=== PATIENT | female | born 1975 | race Caucasian/White ===

== ENCOUNTER 2018-03-16 09:43 | Emergency (ER) | payer BC ==
--- NOTE | 2018-03-16 10:11 | ER Document Report ---
ED Medical Screen (RME) - General Chief Complaint: Abdominal Pain Stated Complaint: ABDOMINAL PAIN Time Seen by Provider: 03/16/18 10:07 TRAVEL OUTSIDE OF THE [place] IN LAST 30 DAYS: No - HPI Notes: 03/16/18 10:10 Patient with history of diverticulitis left lower quadrant pain ongoing since last night with a fever - Related Data Allergies/Adverse Reactions: No Known Allergies Allergy (Unverified 03/16/18 09:44) Past Medical History - Past Medical History Cardiac Medical History: Reports: Hx Hypertension Renal/ Medical History: Denies: Hx Peritoneal Dialysis Review of Systems - Review of Systems Gastrointestinal: Abdominal pain Physical Exam - Vital signs Vitals: Temp Pulse Resp BP Pulse Ox 99.4 F 109 H 16 153/103 H 100 03/16/18 09:46 03/16/18 09:46 03/16/18 09:46 03/16/18 09:46 03/16/18 09:46 - Respiratory Respiratory status: No respiratory distress Chest status: Nontender Breath sounds: Normal Chest palpation: Normal - Cardiovascular Rhythm: Regular Heart sounds: Normal auscultation Course - Vital Signs Vital signs: Temp Pulse Resp BP Pulse Ox 99.4 F 109 H 16 153/103 H 100 03/16/18 09:46 03/16/18 09:46 03/16/18 09:46 03/16/18 09:46 03/16/18 09:46
[2018-03-16 11:08] LABS: ABSOLUTE LYMPHOCYTES (AUTO) 0.7 10^3/uL (0.5-4.7); ABSOLUTE MONOCYTES (AUTO) 0.7 10^3/uL (0.1-1.4); ABSOLUTE NEUT (AUTO) 8.7 10^3/uL (1.7-8.2); BASOPHILS % (AUTO) 0.3 % (0-2); EOSINOPHILS % (AUTO) 0.2 % (0-6); HEMATOCRIT 45.5 % (36.0-47.0); HEMOGLOBIN 15.4 g/dL (12.0-15.5); LYMPHOCYTES % (AUTO) 6.8 % (13-45); MEAN CORPUSCULAR HEMOGLOBIN 28.3 pg (27.0-33.4); MEAN CORPUSCULAR HGB CONC 33.9 g/dL (32.0-36.0); MEAN CORPUSCULAR VOLUME 83 fl (80-97); MONOCYTES % (AUTO) 6.7 % (3-13); PLATELET COUNT 328 10^3/uL (150-450); RED BLOOD COUNT 5.45 10^6/uL (3.72-5.28); RED CELL DISTRIBUTION WIDTH 13.5 % (11.5-14.0); TOTAL CELLS COUNTED % (AUTO) 100 %; WHITE BLOOD COUNT 10.1 10^3/uL (4.0-10.5)
[2018-03-16 11:14] LABS: APPEARANCE,URINE CLEAR; BILIRUBIN,URINE NEGATIVE (NEGATIVE); COLOR,URINE STRAW; GLUCOSE, URINE NEGATIVE (NEGATIVE); KETONES,URINE NEGATIVE (NEGATIVE); LEUKOCYTE ESTERASE,URINE NEGATIVE (NEGATIVE); NITRITE,URINE NEGATIVE (NEGATIVE); PROTEIN,URINE NEGATIVE (NEGATIVE); URINE SPECIFIC GRAVITY 1.013; UROBILINOGEN,URINE NEGATIVE mg/dL (<2.0)
--- NOTE | 2018-03-16 11:15 | ER Document Report ---
ED General <DOT LESLIE - Last Filed: 03/16/18 15:24> - General Mode of Arrival: Ambulatory Information source: Patient TRAVEL OUTSIDE OF THE [place] IN LAST 30 DAYS: No <KUNAL SAVAGE - Last Filed: 03/16/18 16:31> - General Chief Complaint: Abdominal Pain Stated Complaint: ABDOMINAL PAIN Time Seen by Provider: 03/16/18 10:07 Notes: Patient is a 42 year old female with HTN and a history of diverticulitis presents to the emergency department complaining of abdominal pain and vomiting onset yesterday. Patient states when she bent over yesterday morning she immediately vomited. She states she had no pain at that time although she had a burning sensation afterwards. She states last night she began to develop a small amount of abdominal pain which she described as uncomfortable. Around 0600 this morning, patient states she developed severe abdominal pain which has progressively worsened and she noticed she had a temperature of 101. Patient states her symptoms feel similar to her last episode of diverticulitis further stating she has had 3-4 episodes of diverticulitis. According to paperwork patient brought with her, patient had a CT scan in on which showed extensive inflammation in the proximal sigmoid with copious lymphnodes. Physician at that time recommended a colonoscopy but patient states she has not had one done since before the CT scan. Patient states she is currently prescribed Losartan, Amlodipine and Levothyroxine. Patient reports recently moving to [place] from [place] approximately 3 months ago and has yet to establish primary care further stating she is waiting for her insurance to be established. 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 (KUNAL SAVAGE) - Related Data Allergies/Adverse Reactions: No Known Allergies Allergy (Unverified 03/16/18 09:44) Past Medical History - General Information source: Patient - Social History Smoking Status: Never Smoker Cigarette use (# per day): No Chew tobacco use (# tins/day): No Frequency of alcohol use: Occasional Family History: Reviewed & Not Pertinent Patient has suicidal ideation: No Patient has homicidal ideation: No - Past Medical History Cardiac Medical History: Reports: Hx Hypertension Endocrine Medical History: Reports: Hx Hypothyroidism GI Medical History: Reports: Hx Diverticulitis, Hx Colonoscopy <KUNAL SAVAGE - Last Filed: 03/16/18 16:31> Review of Systems - Review of Systems Constitutional: See HPI, Fever EENT: No symptoms reported Cardiovascular: No symptoms reported Respiratory: No symptoms reported Gastrointestinal: See HPI, Abdominal pain, Vomiting Genitourinary: No symptoms reported Female Genitourinary: No symptoms reported Musculoskeletal: No symptoms reported Skin: No symptoms reported Hematologic/Lymphatic: No symptoms reported Neurological/Psychological: No symptoms reported -: Yes All other systems reviewed and negative <KUNAL SAVAGE - Last Filed: 03/16/18 16:31> Physical Exam <DOT LESLIE - Last Filed: 03/16/18 15:24> <KUNAL SAVAGE - Last Filed: 03/16/18 16:31> - Vital signs Vitals: Temp Pulse Resp BP Pulse Ox 99.4 F 109 H 16 153/103 H 100 03/16/18 09:46 03/16/18 09:46 03/16/18 09:46 03/16/18 09:46 03/16/18 09:46 - Notes Notes: GENERAL: Alert, interacts well. No acute distress. HEAD: Normocephalic, atraumatic. EYES: Pupils equal, round, and reactive to light. Extraocular movements intact. ENT: Oral mucosa moist, tongue midline. NECK: Full range of motion. Supple. Trachea midline. LUNGS: Clear to auscultation bilaterally, no wheezes, rales, or rhonchi. No respiratory distress. Chronic dry cough. HEART: Tachycardic. No murmurs, gallops, or rubs. ABDOMEN: Soft, LLQ and left pelvic region tender to palpation. Non-distended. Bowel sounds present in all 4 quadrants. EXTREMITIES: Moves all 4 extremities spontaneously. No edema, radial and dorsalis pedis pulses 2/4 bilaterally. No cyanosis. NEUROLOGICAL: Alert and oriented x3. Normal speech. PSYCH: Normal affect, normal mood. SKIN: Warm, dry, normal turgor. No rashes or lesions noted. (KUNAL SAVAGE) Course - Laboratory Result Diagrams: 03/16/18 10:38 03/16/18 10:38 - Diagnostic Test Radiology reviewed: Reports reviewed - Double contrast a CT scan shows a 15 cm long segment of abnormal distal descending/proximal sigmoid colon with luminal narrowing, wall thickening, and surrounding inflammatory change which is most likely diverticulitis. There are regional lymph nodes which are enlarged in the left lower quadrant mesentery. <DOT LESLIE - Last Filed: 03/16/18 15:24> - Laboratory Result Diagrams: 03/16/18 10:38 03/16/18 10:38 <KUNAL SAVAGE - Last Filed: 03/16/18 16:31> - Re-evaluation Re-evalutation: 03/16/18 15:09 The copies of the medical records and CT scan that was done in [place] were returned to the patient. She was also given a copy of the CT scan report for today. The findings were reviewed along with the recommendation for colonoscopy to evaluate for colon malignancy. She was advised to call [facility] this week to schedule a colonoscopy for after the acute illness resolves. She was also advised to be sure she does not miss her blood pressure medication doses, as her blood pressure was a little elevated today. (DOT LESLIE) - Vital Signs Vital signs: Temp Pulse Resp BP Pulse Ox 99.7 F 96 20 145/88 H 100 03/16/18 15:23 03/16/18 15:23 03/16/18 15:23 03/16/18 15:23 03/16/18 15:23 - Laboratory Laboratory results interpreted by me: 03/16/18 03/16/18 10:38 10:38 RBC 5.45 H Seg Neutrophils % 86.0 H Lymphocytes % 6.8 L Absolute Neutrophils 8.7 H AST 75 H ALT 113 H Alkaline Phosphatase 258 H Discharge <DOT LESLIE - Last Filed: 03/16/18 15:24> <KUNAL SAVAGE - Last Filed: 03/16/18 16:31> - Discharge Clinical Impression: Diverticulitis High blood pressure Qualifiers: Hypertension type: essential hypertension Qualified Code(s): I10 - Essential ( primary) hypertension Condition: Stable Disposition: HOME, SELF-CARE Additional Instructions: Diverticulitis: You have been diagnosed as having diverticulitis. This is an inflammation of a small pouch attached to the colon, called a diverticulum. Many of these small pouches can form on the colon as you get older. They are often caused by constipation. When inflamed or infected, symptoms arise -- usually abdominal pain, constipation or diarrhea, fever, and blood in the stool. Severe diverticulitis may require hospitalization. More mild cases are usually treated with antibiotics and clear liquid diet. As you improve, a diet low in residue (one which forms little stool) is prescribed. When you are better, you should eat a high-fiber diet. Stool softeners ( like Metamucil) are usually recommended. Call the doctor or go to the hospital if there is increasing pain, vomiting , high fever, large amounts of blood passed, or if bowel movements cease. Take the medications as prescribed. Stay on clear diet today and tomorrow. Take Tylenol and ibuprofen for pain as needed. Follow-up with [facility] this week to schedule a colonoscopy for after your current illness resolves. Follow-up with a local primary care provider for management of your medical problems. RETURN TO THE EMERGENCY ROOM IF ANY NEW OR WORSENING SYMPTOMS. Prescriptions: Metronidazole [Flagyl 500 mg Tablet] 500 mg PO QID #28 tablet Sulfamethoxazole/Trimethoprim [Septra-Ds 800-160 mg Tablet] 1 tab PO BID #14 tablet Referrals: [facility] [Provider Group] - Follow up in 1 week Shelley Attestation: 03/16/18 11:51 I personally performed the services described in the documentation, reviewed and edited the documentation which was dictated to the scribe in my presence, and it accurately records my words and actions. (DOT LESLIE) Chrisibe Documentation - Scribe Written by Shelley:: Shelley Quintero, 03/16/2018 11:18 acting as scribe for :: Natalie <KUNAL SAVAGE - Last Filed: 03/16/18 16:31>
[2018-03-16 11:25] LABS: ALANINE AMINOTRANSFERASE 113 U/L (9-52); ALBUMIN 4.6 g/dL (3.5-5.0); ALKALINE PHOSPHATASE 258 U/L (38-126); ANION GAP 13 (5-19); ASPARTATE AMINO TRANSFERASE 75 U/L (14-36); BILIRUBIN,DIRECT 0.3 mg/dL (0.0-0.4); BILIRUBIN,TOTAL 0.6 mg/dL (0.2-1.3); BLOOD UREA NITROGEN 14 mg/dL (7-20); CARBON DIOXIDE 27 mmol/L (22-30); CHLORIDE 101 mmol/L (98-107); GLUCOSE 90 mg/dL (75-110); LIPASE 50.6 U/L (23-300); POTASSIUM 4.8 mmol/L (3.6-5.0); SODIUM 141.2 mmol/L (137-145); TOTAL PROTEIN 8.1 g/dL (6.3-8.2)
--- NOTE | 2018-03-16 14:35 | RADIOLOGY REPORT (SQ) ---
EXAM DESCRIPTION: CT ABD/PELVIS WITH IV ORAL COMPLETED DATE/TIME: 03/16/2018 2:06 pm REASON FOR STUDY: LLQ pain, PMH sigmoid diverticulitis w/ adenopathy COMPARISON: Outside CT abdomen pelvis 08/19/2015 TECHNIQUE: CT scan of the abdomen and pelvis performed using helical scanning technique with dynamic intravenous contrast injection. Patient drank oral contrast. Images reviewed with lung, soft tissue , and bone windows. Reconstructed coronal and sagittal MPR images reviewed. Delayed images for evalua tion of the urinary system also acquired. All images stored on PACS. All CT scanners at this facility use dose modulation, iterative reconstruction, and/or weight based d osing when appropriate to reduce radiation dose to as low as reasonably achievable (ALARA). [facility]: Dose Right [facility]: CareDose [facility]: Dose Right [facility]: Teradose 4D [facility]: ALENTY CONTRAST TYPE AND DOSE: 50 mL of IV Omnipaque 350- low osmolar. RENAL FUNCTION: GFR > 60. RADIATION DOSE: CT Rad equipment meets quality standard of care and radiation dose reduction techniq ues were employed. CTDIvol: 4.8 - 5.2 mGy. DLP: 478 mGy-cm.. LIMITATIONS: None. FINDINGS: On coronal images 30-42, and axial images 40-57, a 15 cm long segment of colon wall thicke los, luminal narrowing, and surrounding inflammatory changes present from acute diverticulitis. Pro bable reactive adenopathy in the left lower quadrant with multiple 1 to 2 cm left lower quadrant mese nteric lymph nodes. There is adjacent pericolic gutter fluid, and free fluid in the left pelvic cul- de-sac. No well-circumscribed rim enhancing abscess. Although these findings likely represent acute diverticulitis, underlying colon malignancy could still be present. Overall, the extent of colon involvement is similar compared to 08/09/2015 Remainder of the gastrointestinal tract is opacified with oral contrast, without evidence of bowel ob struction. LOWER CHEST: No significant findings. No nodules or infiltrates. LIVER: Normal size. No masses. No dilated ducts. SPLEEN: Normal size. No focal lesions. PANCREAS: No masses. No significant calcifications. No adjacent inflammation or peripancreatic fluid collections. Pancreatic duct not dilated. GALLBLADDER: No identified stones by CT criteria. No inflammatory changes to suggest cholecystitis. ADRENAL GLANDS: No significant masses or asymmetry. RIGHT KIDNEY AND URETER: No solid masses. No significant calcifications. No hydronephrosis or hyd roureter. LEFT KIDNEY AND URETER: No solid masses. No significant calcifications. No hydronephrosis or hydr oureter. AORTA AND VESSELS: No aneurysm. No dissection. Renal arteries, SMA, celiac without stenosis. RETROPERITONEUM: No retroperitoneal adenopathy, hemorrhage or masses. BOWEL AND PERITONEAL CAVITY: As above APPENDIX: Normal. PELVIS: No mass. No free fluid. Normal bladder. ABDOMINAL WALL: No masses. No hernias. BONES: No significant or acute findings. OTHER: No other significant finding. IMPRESSION: 15 cm long segment of abnormal distal descending/ proximal sigmoid colon with luminal na rrowing, wall thickening and surrounding inflammatory change likely diverticulitis. There are region al lymph nodes which are enlarged in the left lower quadrant mesentery. When the patient's acute con dition resolves, workup for colon malignancy with endoscopy is recommended. TECHNICAL DOCUMENTATION: JOB ID: [id number] Quality ID # [id number]: Final reports with documentation of one or more dose reduction techniques (e.g., Au tomated exposure control, adjustment of the mA and/or kV according to patient size, use of iterative reconstruction technique) 2010 [employer]- All Rights Reserved Reading location - IP/workstation name: [email or web address]
[2018-03-16] MEDS ORDERED: METRONIDAZOLE 500 MG TABLET PO ONE (15:04)
[2018-03-16] MEDS ORDERED: SULFAMETHOXAZOLE/TRIMETHOPRIM 800-160 MG TABLET PO ONE (15:04)
[2018-03-16] MEDS ORDERED: KETOROLAC TROMETHAMINE INJ/PF 30 MG/1 ML SDV IV ONE (15:18)
[2018-03-16 15:31] VITALS: BP 145/88
== END 2018-03-16 15:49 | disposition home or self-care (01) ==
LOC: ER 09:43
DX: K57.92 Diverticulitis of intestine, part unspecified, without perforation or abscess without bleeding (principal); I10 Essential (primary) hypertension; R11.10 Vomiting, unspecified
CPT/HCPCS: 99284; 96374; 36415; 83690; 84703; 85025; 80053; 81001; 74177; J1885

== ENCOUNTER → 2018-05-01 | Outpatient (CLI) | payer BC ==
[2018-05-01 11:04] LABS: HEMATOCRIT 42.5 % (36.0-47.0); HEMOGLOBIN 14.6 g/dL (12.0-15.5); MEAN CORPUSCULAR HEMOGLOBIN 28.6 pg (27.0-33.4); MEAN CORPUSCULAR HGB CONC 34.3 g/dL (32.0-36.0); MEAN CORPUSCULAR VOLUME 84 fl (80-97); PLATELET COUNT 300 10^3/uL (150-450); RED BLOOD COUNT 5.09 10^6/uL (3.72-5.28); RED CELL DISTRIBUTION WIDTH 13.5 % (11.5-14.0); WHITE BLOOD COUNT 9.3 10^3/uL (4.0-10.5)
[2018-05-01 11:27] LABS: ALANINE AMINOTRANSFERASE 76 U/L (9-52); ALBUMIN 4.6 g/dL (3.5-5.0); ALKALINE PHOSPHATASE 204 U/L (38-126); ANION GAP 9 (5-19); ASPARTATE AMINO TRANSFERASE 56 U/L (14-36); BILIRUBIN,DIRECT 0.3 mg/dL (0.0-0.4); BILIRUBIN,TOTAL 0.9 mg/dL (0.2-1.3); BLOOD UREA NITROGEN 14 mg/dL (7-20); CALCIUM 9.9 mg/dL (8.4-10.2); CARBON DIOXIDE 28 mmol/L (22-30); CHLORIDE 103 mmol/L (98-107); GLUCOSE 80 mg/dL (75-110); POTASSIUM 4.8 mmol/L (3.6-5.0); SODIUM 139.8 mmol/L (137-145); TOTAL PROTEIN 7.5 g/dL (6.3-8.2)
--- NOTE | 2018-05-01 13:43 | RADIOLOGY REPORT (SQ) ---
EXAM DESCRIPTION: CT ABD/PELVIS WITH IV ORAL COMPLETED DATE/TIME: 05/01/2018 1:17 pm REASON FOR STUDY: DIVERTICULOSIS W/O HEM (K57.30), LLQ PAIN (R10.32), ABD TENDERNESS LLQ (R10 R10.2 PELVIC AND PERINEAL PAIN K57.30 DVRTCLOS OF LG INT W/O PERFORATION OR ABSCESS W/O BLE COMPARISON: 03/16/2018 TECHNIQUE: CT scan of the abdomen and pelvis performed using helical scanning technique with dynamic intravenous contrast injection. Oral contrast. Images reviewed with lung, soft tissue, and bone win dows. Reconstructed coronal and sagittal MPR images reviewed. Delayed images for evaluation of the ur inary system also acquired. All images stored on PACS. All CT scanners at this facility use dose modulation, iterative reconstruction, and/or weight based d osing when appropriate to reduce radiation dose to as low as reasonably achievable (ALARA). [facility]: Dose Right [facility]: CareDose [facility]: Dose Right [facility]: Teradose 4D [facility]: [employer] CONTRAST TYPE AND DOSE: contrast/concentration: Isovue 350.00 mg/ml; Total Contrast Delivered: 55.0 ml; Total Saline Delivered: 65.0 ml RENAL FUNCTION: BUN 14 creatinine 0.59 GFR greater than 60 RADIATION DOSE: CT Rad equipment meets quality standard of care and radiation dose reduction techniq ues were employed. CTDIvol: 2.5 - 3.0 mGy. DLP: 249 mGy-cm.. LIMITATIONS: None. FINDINGS: LOWER CHEST: No significant findings. No nodules or infiltrates. LIVER: Normal size. No masses. No dilated ducts. SPLEEN: Normal size. No focal lesions. PANCREAS: No masses. No significant calcifications. No adjacent inflammation or peripancreatic fluid collections. Pancreatic duct not dilated. GALLBLADDER: No identified stones by CT criteria. No inflammatory changes to suggest cholecystitis. ADRENAL GLANDS: No significant masses or asymmetry. RIGHT KIDNEY AND URETER: No solid masses. No significant calcifications. No hydronephrosis or hyd roureter. LEFT KIDNEY AND URETER: No solid masses. No significant calcifications. No hydronephrosis or hydr oureter. AORTA AND VESSELS: No aneurysm. No dissection. Renal arteries, SMA, celiac without stenosis. RETROPERITONEUM: There are couple small nonspecific periaortic and mesenteric nodes. BOWEL AND PERITONEAL CAVITY: There is persistent wall thickening of a segment of the descending and s igmoid colon. Associated sigmoid diverticula are present. Mild pericolic inflammatory changes are p resent. Persistent mesenteric adenopathy in the left lower quadrant. There appears to be improvemen t but not complete resolution of the findings that were initially described on the study from 018. APPENDIX: Not identified. PELVIS: No mass. No free fluid. Normal bladder. ABDOMINAL WALL: No masses. No hernias. BONES: No significant or acute findings. OTHER: No other significant finding. IMPRESSION: There are persistent inflammatory changes in the left lower quadrant as described. Ther e is persistent thickening of a segment of the distal descending and the proximal sigmoid colon. The re does appear to be some improvement. Neoplasm cannot be excluded. Colonoscopy would certainly be recommended when the clinical situation permits. TECHNICAL DOCUMENTATION: JOB ID: [id number] Quality ID # [id number]: Final reports with documentation of one or more dose reduction techniques (e.g., Au tomated exposure control, adjustment of the mA and/or kV according to patient size, use of iterative reconstruction technique) 2010 [employer]- All Rights Reserved Reading location - IP/workstation name: [email or web address]
== END ==
LOC: RAD 10:18
PROVIDERS: ATTEND Internal Medicine Gastroenterology
DX: K57.30 Diverticulosis of large intestine without perforation or abscess without bleeding (principal); R10.32 Left lower quadrant pain; R10.814 Left lower quadrant abdominal tenderness
CPT/HCPCS: 36415; 74177; 80053; 85027

== ENCOUNTER → 2018-05-07 | Outpatient (CLI) | payer BC ==
[2018-05-08 14:00] LABS: ACTIN (SMOOTH MUSCLE) ANTIBODY 15 Units (0-19); MITOCHONDRIAL (M2) ANTIBODY <20.0 Units (0.0-20.0)
[2018-05-09 06:39] LABS: HEPATITIS B CORE AB IGM Negative (Negative); HEPATITIS B CORE AB TOT Negative (Negative); HEPATITIS BE AB Negative (Negative); HEPATITIS BE ANTIGEN Negative (Negative); HEPATITIS C VIRUS AB 0.1 s/co ratio (0.0-0.9); HEPATITS B SURFACE ANTIGEN Negative (Negative)
[2018-05-10 11:31] LABS: HEPATITIS B SURFACE AB QUAL Non Reactive (.)
== END ==
LOC: LAB 07:02
PROVIDERS: ATTEND Physician Assistant Surgical
DX: R94.5 Abnormal results of liver function studies (principal)
CPT/HCPCS: 36415; 86038; 86235; 86256; 86704; 86705; 86706; 86707; 86803; 87340; 87350